=== PATIENT | female | born 1970 | race Caucasian/White ===

== ENCOUNTER 2017-07-29 07:16 | Emergency (ER) | payer OTHER ==
[~2017-07-29] VITALS: Ht 154.9 cm; Wt 71.1 kg
[2017-07-29 07:24] VITALS: BP 113/73
[2017-07-29] MEDS ORDERED: SODIUM CHLORIDE 0.9% 1,000 ML IV ONE (07:47)
[2017-07-29] MEDS ORDERED: ONDANSETRON 2MG/ML, 2ML IVPush ONE (08:00)
[2017-07-29] MEDS ORDERED: SODIUM CHLORIDE 0.9% 1,000ML IVBOLUS ONE (08:00)
[2017-07-29] MEDS ORDERED: SODIUM CHLORIDE FLUSH 10ML SYR IVF ONE (08:00)
[2017-07-29] MEDS ORDERED: METOCLOPRAMIDE 5 MG/ML, 2ML ONE (08:19)
[2017-07-29] MEDS ORDERED: PROCHLORPERAZINE 5 MG/ML, 2ML ONE (08:19)
[2017-07-29] MEDS ORDERED: DIPHENHYDRAMINE 50 MG/ML, 1ML ONE (08:19)
[2017-07-29] MEDS ORDERED: ONDANSETRON 2MG/ML, 2ML ONE (08:19)
[2017-07-29] MEDS ORDERED: DIPHENHYDRAMINE 50 MG/ML, 1ML IVPush ONE (08:30)
[2017-07-29] MEDS ORDERED: PROCHLORPERAZINE 5 MG/ML, 2ML IVPush ONE (08:30)
== END 2017-07-29 10:59 | disposition home or self-care (01) ==
LOC: ED 09:39
DX: G43.009 Migraine without aura, not intractable, without status migrainosus (principal)
CPT/HCPCS: 96374; 96375; 99284; J0780; J1200